=== PATIENT | male | born 1940 | race Caucasian/White ===

== ENCOUNTER 2016-07-22 07:29 | Inpatient (IN) ==
--- NOTE | 2016-07-22 07:48 | Discharge Summary ---
<Sue Banerjee Rico - Last Filed: 07/22/16 10:10> Date of Encounter: 07/22/16 - Discharge Diagnosis (1) Rotator cuff tear arthropathy of right shoulder Priority: Primary Status: Acute (2) History of DVT (deep vein thrombosis) Priority: Secondary Status: Chronic (3) HTN (hypertension) Priority: Secondary Status: Chronic Qualifiers: Hypertension type: essential hypertension Qualified Code(s): I10 - Essential (primary) hypertension (4) HLD (hyperlipidemia) Priority: Secondary Status: Chronic Qualifiers: Hyperlipidemia type: unspecified Qualified Code(s): E78.5 - Hyperlipidemia , unspecified - Discharge Medications Home Medications: Hydrochlorothiazide 25 mg PO DAILY 09/19/15 [History] Pantoprazole Sodium [Protonix] 40 mg PO DAILY 09/19/15 [History] Carvedilol 12.5 mg PO BID 07/04/16 [History] EPINEPHrine [Epipen] 0.3 mg IM ONCE PRN 07/04/16 [History] Rivaroxaban [Xarelto] 20 mg PO DAILY 07/04/16 [History] Lactobacillus [Culturelle] 1 each PO DAILY 07/22/16 [History] OxyCODONE Immed Rel [Roxicodone 5 MG] 5 - 10 mg PO Q6HR PRN #40 tablet 07/22/16 [Rx] Allergies/Adverse Reactions: Allergies indomethacin [From Indocin] Allergy (Verified 07/22/16 08:39) Rash *patient states unsure promethazine [From Phenergan] Allergy (Verified 07/22/16 08:39) Shakiness trazodone Allergy (Verified 07/22/16 08:39) Rash *patient states unsure venom-honey bee [bee venom (honey bee)] Allergy (Verified 07/04/16 08:14) Anaphylaxis Hydromorphone [From Dilaudid] Adverse Reaction (Verified 07/22/16 08:39) Headache Primary care physician: Lee Michelle MD - Patient Status Disposition: Home, Self-Care Condition: Good - Discharge Instructions Follow Up With: Lee Michelle MD [Primary Care Provider] - - Hospital Course Hospital course: Mr. Cruz is a 76 year old male - Time Spent with Patient Total time spent providing and/or coordinating discharge services: <Guzman Hillman - Last Filed: 07/22/16 12:57> Date of Encounter: 07/22/16 Time of Encounter: 12:56 - Discharge Diagnosis (1) Rotator cuff tear arthropathy of right shoulder Priority: Primary Status: Acute (2) HLD (hyperlipidemia) Priority: Secondary Status: Chronic Qualifiers: Hyperlipidemia type: unspecified Qualified Code(s): E78.5 - Hyperlipidemia , unspecified (3) HTN (hypertension) Priority: Secondary Status: Chronic Qualifiers: Hypertension type: essential hypertension Qualified Code(s): I10 - Essential (primary) hypertension (4) History of DVT (deep vein thrombosis) Priority: Secondary Status: Chronic Primary care physician: Lee Michelle MD - Patient Status Functional capacity at discharge: uses cane/walker Overall status at discharge: patient is progressing back to baseline - Hospital Course Hospital course: Mr. Cruz is a 76 year old male The patient had an uneventful postoperative course. They received antibiotics and physical therapy and were discharged in stable condition. There will follow -up in the office in 2 weeks. - Time Spent with Patient Total time spent providing and/or coordinating discharge services:
--- NOTE | 2016-07-22 08:01 | History & Physical Report ---
Date of Encounter: 07/22/16 Time of Encounter: 08:01 24 Hour HP Update - Instructions Instructions: If the History and Physical is less than 30 days old and was completed prior to A.M. admission and or procedure and has NOT been updated on calendar day of procedure please complete this update prior to performing procedure. - Update Patient reports changes in Medical Condition: No Changes in assessment/condition: No Changes in Medication: No Preop tests/diagnostics Reviewed: Yes Surgery Remains Indicated: Yes Consent for Planned Operative Procedure(s) Verified: Yes - Pre-Operative Checklist Preoperative Checklist Indicated: No Prophylactic Antibiotic Ordered: Yes Is VTE Prophylaxis Indicated?: Yes
[2016-07-22] MEDS ORDERED: CeFAZolin Pre 2,000 MG/100 ML 2,000 MG/100 ML BAG IVPB ONE (08:25)
[2016-07-22] MEDS ORDERED: Lidocaine 1% 20 ML MDV ID ONE (08:25)
[2016-07-22] MEDS: Ringers Solution, Lactated 1,000 ML IVC SCH ×2 (08:36→11:45)
[2016-07-22] MEDS ORDERED: Dexamethasone 4 MG/ML VIAL ONE (08:58)
[2016-07-22] MEDS ORDERED: Ondansetron 4 MG/2 ML VIAL ONE (08:58)
[2016-07-22] MEDS ORDERED: Lidocaine -MPF 4% 5 ML AMPUL ONE (08:58)
[2016-07-22] MEDS ORDERED: *HR* Succinylcholine 200 MG/10 ML VIAL IVP ONE (08:58)
[2016-07-22] MEDS ORDERED: Lidocaine -MPF 2% 2 ML VIAL ONE (08:58)
[2016-07-22] MEDS ORDERED: *HR* FentaNYL (PF) 100 MCG/2 ML VIAL ONE (08:59)
[2016-07-22] MEDS ORDERED: *HR* Midazolam HCl 2 MG/2 ML VIAL ONE (08:59)
[2016-07-22] MEDS ORDERED: *HR* Propofol 200 MG/20 ML VIAL IVP ONE (08:59)
[2016-07-22] MEDS ORDERED: *HR* Morphine 2 MG/ML SYRINGE IVP PRN (09:12)
[2016-07-22] MEDS ORDERED: Ondansetron 4 MG/2 ML VIAL IVP ONE (09:12)
--- NOTE | 2016-07-22 09:27 | Anesthesia Evaluation PreOp ---
Date of Encounter: 07/22/16 Time of Encounter: 09:20 - Past History Planned Operation: Rt Total Shoulder Replacement Cardiac History: HTN, Hyperlipidemia, Other (Hx DVT) Pulmonary History: Denies Any Significant HX ENGLISH DRAWER History: Denies Any Significant HX Other Medical History: Diabetes Type II Anesthesia History: No Prior Anesthetic Complications Alcohol Use: none Drug use: none Medications and Allergies Hydrochlorothiazide 25 mg PO DAILY 09/19/15 [History] Pantoprazole Sodium [Protonix] 40 mg PO DAILY 09/19/15 [History] Carvedilol 12.5 mg PO BID 07/04/16 [History] EPINEPHrine [Epipen] 0.3 mg IM ONCE PRN 07/04/16 [History] Rivaroxaban [Xarelto] 20 mg PO DAILY 07/04/16 [History] Lactobacillus [Culturelle] 1 each PO DAILY 07/22/16 [History] OxyCODONE Immed Rel [Roxicodone 5 MG] 5 - 10 mg PO Q6HR PRN #40 tablet 07/22/16 [Rx] Allergies indomethacin [From Indocin] Allergy (Verified 07/22/16 08:39) Rash *patient states unsure promethazine [From Phenergan] Allergy (Verified 07/22/16 08:39) Shakiness trazodone Allergy (Verified 07/22/16 08:39) Rash *patient states unsure venom-honey bee [bee venom (honey bee)] Allergy (Verified 07/04/16 08:14) Anaphylaxis Hydromorphone [From Dilaudid] Adverse Reaction (Verified 07/22/16 08:39) Headache - Meds/Allergy Pre-op Review Medications Reviewed: Yes Allergies Reviewed: Yes Beta Blockers on Current Med List: Yes (Took Coreg yesterday 1729) Anesthesia Results - Labs Laboratory Tests 07/08/16 07/08/16 07/08/16 14:30 14:30 14:30 Hgb 13.9 Hct 41.4 Plt Count 199 PT 13.4 H INR 1.2 APTT 30.9 Sodium 139 Potassium 4.1 BUN 20 Creatinine 1.10 - Imaging EKG: report reviewed (SR) Additional studies: LVEF 55%, stress test negative Anesthesia Exam O2 Sat Height 1.78 m Height 1.78 m Height 1.78 m Weight 90.718 kg Weight 90.718 kg Weight 90.718 kg O2 Sat by Pulse Oximetry 99 O2 Sat by Pulse Oximetry 99 Vital Signs Temp Pulse Resp BP Pulse Ox 98.1 F 87 18 190/88 99 07/22/16 08:02 07/22/16 08:02 07/22/16 08:02 07/22/16 08:02 07/22/16 08:02 Height: 6'0 Weight: 199 lbs NPO (# of Hours): MN - HEENT Pupil (Motor): Pupils equal, EOMI Mallampati: II Teeth: Normal Oral Opening: Greater than 3 - ENGLISH DRAWER LOC: Oriented ENGLISH DRAWER Motor: Normal RUE, Normal LUE, Normal RLE, Normal LLE, Normal Face ENGLISH DRAWER Sensory: Normal: RUE, LUE, RLE, LLE, Face - Cardiac Rhythm: Regular Murmur: None JVD: No Carotid Bruit: No - Pulmonary Breath Sounds: bilateral Clear Respiratory Effort: Symmetrical Anesthesia Assess/Plan ASA Score: 3 (HTN DVT) Modified Cait Scale for Level of Consciousness: Cooperative, oriented, and tranquil Anesthetic Plan: General, Regional Monitoring Plan: Standard Monitors Recovery Plan: PACU (Discussed GA and RA, agrees to proceed)
[2016-07-22] MEDS ORDERED: ROPIVACAINE HCL/PF 0.5% 30 ML VIAL ONE (09:55)
[2016-07-22] MEDS ORDERED: Tetracaine/PF 20 MG/2 ML AMPUL SPINA ONE (09:56)
--- NOTE | 2016-07-22 10:26 | Anesthesia Procedures ---
Date of Encounter: 07/22/16 Time of Encounter: 10:00 Procedures: Anesthesia - Nerve Block Procedure Date: 07/22/16 Time: 10:10 Pre-op Diagnosis: Rt Shoulder Arthropathy Surgical Procedure: Rt Shoulder Reverse Ball Total Correct side: Right Blood Thinner: No Monitor Applied: EKG, Pulse Oximetry Supplemental Oxygen via Nasal Cannula (L/min): 2 Sedation: Versed (mg): 2 Sedation: Fentanyl (mcg): 100 Indication: Post Op Analgesia Pre-op Neuro Deficits: No Block Type: Supraclavicular Catheter placed: No Depth at skin (cm): 2 Sterile Technique: Yes Ultrasound used: Yes Anatomy identified: Yes Visual spread of Local: Yes Neuro Stimulation: No Blood on Needle Aspiration: No Smooth Injection of Local: Yes Pain with Injection of Local: No Prep: Chlorhexadine, Alcohol Needle: 22 x 50 mm Stimuplex Local: Tetracaine, Ropivacaine (0.5%) Volume (cc): 30 Number of Attempts: 1 Complications: None/effective block Vitals: Vital Signs/O2 Sat/Glucose, Most Current Temp Pulse Resp BP Pulse Ox 07/22/16 10:09 67 16 157/81 99 07/22/16 09:46 74 16 179/97 100 07/22/16 08:28 98.1 F 87 18 190/88 99 07/22/16 08:02 98.1 F 87 18 190/88 99
[2016-07-22] MEDS ORDERED: *HR* Morphine 10 MG/ML VIAL ONE (10:57)
--- NOTE | 2016-07-22 11:23 | Orthopedic Operative Note ---
Date of procedure: 07/22/16 Pre-op diagnosis: Right shoulder cuff tear arthropathy Post-op diagnosis: same Implants: Procedure: Right Total Shoulder Replacment Reverse, biceps tenodesi Estimated blood loss: 100 cc Hardware:Arthrex large glenoid baseplate, 2 4.5 screws. 1 6.5 screw, 22 lateral glenosphere, 9 humeral stem, poly insert 3 constrained 12 metal Exam Under anesthesia: Restricted and motion all planes Procedural Notes: Extensive grade 4 arthritic changes posterior subluxation posterior wear on the glenoid. Irreparable rotator cuff tear Operative procedure: The patient was brought to the operating room and placed on the operating room table. After general anesthesia was administered the operative shoulder was examined. Findings were noted. The patient was placed in the modified beachchair position. All pressure points were padded appropriately. And the head was stabilized in the neutral position. The operative extremity was prepped and draped in the sterile surgical fashion. The patient received IV antibiotics prior to skin incision. A standard deltopectoral approach was made to the operative shoulder. Incision was made to the skin and subcutaneous tissue,hemo stasis was obtained with Bovie cautery. Using careful blunt dissection the cephalic vein was identified and mobilized medially. The deltopectoral interval was developed and the clavipectoral fascia was incised. The subscap was released off the lesser tuberosity it was irreparable. The humerus was dislocated patient noted to have irreparable tear supraspinatus tendon as well as extensive grade 4 arthritic changes with posterior wear, and the humeral cut was made along the anatomic neck. Anterior and posterior Bankart retractors were placed to expose the glenoid. The glenoid guide was seated and the centering hole was made. It was reamed with the appropriate large reamer. The large baseplate was seated and secured with (2) 4.5 screws and one 6.5 screw. The baseplate was irrigated and dried and the lateral Glenosphere was seated and secured with the Sabillon taper. The Sabillon taper was tested and found to be secure the humerus was redislocated and prepared with the diaphyseal reamers, followed by a broaching process up to the appropriate size X in the patient's anatomic version. The metaphyseal reamer was then utilized. Trial reduction found the shoulder to be relocatable. Trial components were removed. The appropriate 9 stem was impacted in place in the patient's anatomic version. Trial reduction found the shoulder to be relocatable and stable with the appropriate 12 metal 3 constrained Usha Trial component was removed and the real 12 metal 3 constrained Usha was seated and secured the shoulder was reduced. The shoulder had excellent motion and excellent stability and no evidence of dislocation. The deep tissue was irrigated with pulse irrigation. The deltopectoral interval was closed with a running #1 PDS suture, subcutaneous tissue was irrigated and closed with 0 PDS suture, the skin was closed with Dermabond. The patient was placed in a sterile dressing, abduction brace and extubated. The patient was then transferred to the recovery room in stable condition. Anesthesia: ROMARIO Surgeon: Guzman Hillman Electronics Lead: Sue Banerjee Condition: stable Disposition: PACU
[2016-07-22 12:03] LABS: Hematocrit 37.9 % (37.5-50.1); Hemoglobin 12.5 g/dL (12.9-16.9)
--- NOTE | 2016-07-22 12:18 | Anesthesia Evaluation Post Op ---
Date of Encounter: 07/22/16 Time of Encounter: 12:17 - Vital Signs Vital Signs: Vital Signs/O2 Sat/Glucose, Most Current Temp Pulse Resp BP Pulse Ox 07/22/16 12:00 95 18 162/95 97 07/22/16 11:50 99 18 128/98 100 07/22/16 11:40 97.1 F L 91 18 149/100 100 07/22/16 10:32 71 18 167/90 98 07/22/16 10:09 67 16 157/81 99 07/22/16 09:46 74 16 179/97 100 07/22/16 08:28 98.1 F 87 18 190/88 99 - Lungs Lungs: Clear Ascult./Percussion - Airway Airway: Non-obstructed - Cardiovascular Regular Rate - Mental Status Mental Status: Alert & Oriented, Answers Appropriately - Pain Pain Scale: 2 - Nausea Vomiting Nausea Vomiting: Not Present - Hydration Hydration: Tolerates oral liquids - Discharge PostOp Status: Transfer Patient to floor
[2016-07-22] MEDS ORDERED: *HR* EPINEPHrine 0.3 MG/0.3 ML (PEN) IM PRN (12:35)
[2016-07-22] MEDS ORDERED: *HR* OxyCODONE Immed Rel 5 MG TABLET PO PRN ×2 (12:35)
[2016-07-22] MEDS ORDERED: Temazepam 15 MG CAPSULE PO PRN (12:35)
[2016-07-22] MEDS ORDERED: Albuterol Neb 1.25 MG/3 ML VIAL IH ONE (12:35)
[2016-07-22] MEDS ORDERED: Ringers Solution, Lactated 1,000 ML IVC SCH (12:35)
[2016-07-22] MEDS ORDERED: Sennosides 8.6 MG TABLET PO PRN (12:35)
[2016-07-22] MEDS ORDERED: Acetaminophen 325 MG TABLET PO PRN (12:35)
[2016-07-22] MEDS ORDERED: Naloxone 0.4 MG/ML INJ IVP PRN (12:35)
[2016-07-22] MEDS ORDERED: Ondansetron 4 MG/2 ML VIAL IVP PRN (12:35)
[2016-07-22] MEDS ORDERED: MOM Conc 10 ML UD.LIQ PO PRN (12:35)
[2016-07-22] MEDS ORDERED: *HR* Rivaroxaban 10 MG TABLET PO SCH (14:00)
[2016-07-22 15:04] VITALS: BP 130/86
[2016-07-22] MEDS ORDERED: *HR* Enoxaparin 30 MG/0.3 ML SYRINGE SQ SCH (18:00)
[2016-07-22] MEDS ORDERED: ceFAZolin 2,000 MG in D5% in Water 100 ML IVPB SCH (18:30)
[2016-07-23] MEDS ORDERED: Lactobacillus 1 EACH CAP.SPRINK PO SCH (09:00)
[2016-07-23] MEDS ORDERED: hydroCHLOROthiazide 25 MG TABLET PO SCH (09:00)
== END 2016-07-22 16:47 | disposition home health service (06) | DRG 483 ==
LOC: SAMDAY 07:29 → 3NENU 12:34
PROVIDERS: ADMIT Orthopaedic Surgery; ATTEND Orthopaedic Surgery

== ENCOUNTER 2020-03-29 00:46 | Inpatient (IN) ==
[2020-03-29 04:35] LABS: Adenovirus Not Detected (Not Detect); Bordetella Pertussis Not Detected (Not Detect); Coronavirus 229E Not Detected (Not Detect); Coronavirus HKU1 Not Detected (Not Detect); Coronavirus NL63 Not Detected (Not Detect); Coronavirus OC43 Not Detected (Not Detect); Human Metapneumovirus Not Detected (Not Detect); Human Rhinovirus/Enterovirus Not Detected (Not Detect); Influenza A Subtype 2009 H1 Not Detected (Not Detect); Influenza B Not Detected (Not Detect); Parainfluenza Virus 1 Not Detected (Not Detect); Parainfluenza Virus 2 Not Detected (Not Detect); Parainfluenza Virus 3 Not Detected (Not Detect); Parainfluenza Virus 4 Not Detected (Not Detect); Respiratory Syncytial Virus Not Detected (Not Detect); SARS-CoV-2 Not Detected (Not Detect)
[2020-03-29 04:36] LABS: Chlamydophila pneumoniae Not Detected (Not Detect); Mycoplasma pneumoniae Not Detected (Not Detect)
[2020-03-29] MEDS ORDERED: Naloxone 0.4 MG/ML INJ IVP PRN (05:35)
[2020-03-29] MEDS ORDERED: Ondansetron 4 MG/2 ML VIAL IVP PRN (05:35)
[2020-03-29 06:56] LABS: Basophils # 0.1 K/mcL (0.0-0.2); Basophils % 0.7 %; Eosinophils # 0.2 K/mcL (0.0-0.6); Eosinophils % 3.4 %; Hematocrit 30.2 % (37.5-50.1); Immature Granulocytes % 0.1 % (0-4); Lymphocytes # 1.5 K/mcL (0.6-4.6); Lymphocytes % 22.1 %; Mean Corpuscular HGB Conc 29.8 g/dL (31.6-35.5); Mean Corpuscular Hemoglobin 24.7 pg (28.0-33.3); Mean Platelet Volume 9.9 fL (9.4-12.4); Monocytes # 0.7 K/mcL (0.0-1.3); Monocytes % 10.5 %; Neutrophils # 4.3 K/mcL (1.6-8.9); Platelet Count 236 K/mcL (140-400); Red Blood Count 3.64 M/mcL (4.19-5.50); Red Cell Distribution Width 15.7 % (11.5-14.5); Segmented Neutrophils % 63.2 %; White Blood Count 6.8 K/mcL (4.3-11.1)
[2020-03-29 07:08] LABS: INR 2.2; Prothrombin Time 24.8 Seconds (9.4-12.1)
[2020-03-29 07:16] LABS: Alanine Aminotransferase 8 Units/L (7-52); Albumin 3.8 g/dL (3.5-5.7); Albumin/Globulin Ratio 1.5 (1.1-2.2); Alkaline Phosphatase 68 Units/L (34-104); Aspartate Amino Transferase 12 Units/L (13-39); BUN/Creatinine Ratio 21 (6-26); Bilirubin,Total 0.4 mg/dL (0.3-1.0); Blood Urea Nitrogen 24 mg/dL (8-23); Calcium 8.7 mg/dL (8.6-10.3); Carbon Dioxide 29 mEq/L (23-29); Chloride 104 mEq/L (98-107); Globulin 2.6 g/dL (2.4-3.5); Glucose 109 mg/dL (70-105); Osmolality,Calculated 293 (280-300); Potassium 3.5 mEq/L (3.5-5.1); Sodium 139 mEq/L (136-145); Total Protein 6.4 g/dL (6.4-8.9); eGFR For African Americans > 60 (> 60); eGFR For Non-African Americans > 60 (> 60)
[2020-03-29] MEDS ORDERED: Perflutren Lipid Microsphere 1.3 ML in 0.9 % Sodium Chloride 8.7 ML IVP PRN ×2 (07:21→09:08)
[2020-03-29 07:52] LABS: Hematocrit 29.9 % (37.5-50.1); Hemoglobin 8.9 g/dL (12.9-16.9); Mean Corpuscular HGB Conc 29.8 g/dL (31.6-35.5); Mean Corpuscular Hemoglobin 24.6 pg (28.0-33.3); Mean Corpuscular Volume 82.6 fL (83.0-100.0); Mean Platelet Volume 10.3 fL (9.4-12.4); Platelet Count 231 K/mcL (140-400); Red Blood Count 3.62 M/mcL (4.19-5.50); Red Cell Distribution Width 15.8 % (11.5-14.5)
[2020-03-29] MEDS: Furosemide 40 MG/4 ML VIAL IVP SCH (08:37)
[2020-03-29] MEDS ORDERED: *HR* Heparin 5,000 UNIT/ML VIAL IVP ONE (16:53)
[2020-03-29] MEDS ORDERED: *HR* Heparin 5,000 UNIT/ML VIAL IVP PRN ×2 (16:53)
[2020-03-29] MEDS ORDERED: Loratadine 10 MG TABLET PO PRN (17:04)
[2020-03-29] MEDS: Heparin 25,000UNIT/250ML 1/2NS 25,000 UNIT/250 ML IV.SOLN IVC SCH (17:53)
[2020-03-29] MEDS: carvediloL 25 MG TABLET PO SCH (17:57)
[2020-03-29] MEDS: hydroCHLOROthiazide 25 MG TABLET PO SCH (17:58)
[2020-03-30 02:05] LABS: BUN/Creatinine Ratio 26 (6-26); Blood Urea Nitrogen 29 mg/dL (8-23); Calcium 8.5 mg/dL (8.6-10.3); Carbon Dioxide 28 mEq/L (23-29); Chloride 103 mEq/L (98-107); Glucose 101 mg/dL (70-105); Osmolality,Calculated 292 (280-300); Potassium 3.5 mEq/L (3.5-5.1); Sodium 138 mEq/L (136-145); eGFR For African Americans > 60 (> 60); eGFR For Non-African Americans > 60 (> 60)
[2020-03-30] MEDS: hydroCHLOROthiazide 25 MG TABLET PO SCH (07:18)
[2020-03-30] MEDS: Furosemide 40 MG/4 ML VIAL IVP SCH (07:18)
[2020-03-30] MEDS: Heparin 25,000UNIT/250ML 1/2NS 25,000 UNIT/250 ML IV.SOLN IVC SCH (07:18)
[2020-03-30] MEDS: carvediloL 25 MG TABLET PO SCH ×2 (07:18→16:31)
[2020-03-30 17:47] LABS: INR 1.3; Prothrombin Time 14.6 Seconds (9.4-12.1)
[2020-03-30] MEDS: Aspirin 81 MG TAB.CHEW PO SCH (18:12)
[2020-03-31 00:47] LABS: Hematocrit 29.4 % (37.5-50.1); Hemoglobin 8.9 g/dL (12.9-16.9); Mean Corpuscular HGB Conc 30.3 g/dL (31.6-35.5); Mean Corpuscular Hemoglobin 23.9 pg (28.0-33.3); Mean Corpuscular Volume 78.8 fL (83.0-100.0); Mean Platelet Volume 10.1 fL (9.4-12.4); Platelet Count 257 K/mcL (140-400); Red Blood Count 3.73 M/mcL (4.19-5.50); Red Cell Distribution Width 15.8 % (11.5-14.5); White Blood Count 7.7 K/mcL (4.3-11.1)
[2020-03-31 00:59] LABS: BUN/Creatinine Ratio 28 (6-26); Blood Urea Nitrogen 37 mg/dL (8-23); Calcium 8.7 mg/dL (8.6-10.3); Carbon Dioxide 29 mEq/L (23-29); Chloride 99 mEq/L (98-107); Glucose 135 mg/dL (70-105); Osmolality,Calculated 293 (280-300); Potassium 3.1 mEq/L (3.5-5.1); Sodium 136 mEq/L (136-145); eGFR For African Americans > 60 (> 60); eGFR For Non-African Americans 53 (> 60)
[2020-03-31 01:07] LABS: INR 1.2; Prothrombin Time 14.1 Seconds (9.4-12.1)
[2020-03-31 01:09] LABS: Activated Partial Thrombo Time 53.5 Seconds (26.0-36.0)
[2020-03-31] MEDS: Heparin 25,000UNIT/250ML 1/2NS 25,000 UNIT/250 ML IV.SOLN IVC SCH (05:37)
[2020-03-31] MEDS: carvediloL 25 MG TABLET PO SCH ×2 (07:06→18:11)
[2020-03-31] MEDS: Aspirin 81 MG TAB.CHEW PO SCH (07:06)
[2020-03-31] MEDS: hydroCHLOROthiazide 25 MG TABLET PO SCH (07:06)
[2020-03-31 08:16] LABS: Activated Partial Thrombo Time 112.9 Seconds (26.0-36.0)
[2020-03-31 08:29] LABS: Heparin anti-factor XA UFH 0.81 IU/mL (0.30-0.70)
[2020-03-31] MEDS ORDERED: Heparin 1,000 UNITS/500 mL 500 ML ONE ×2 (15:47→16:54)
[2020-03-31] MEDS ORDERED: 0.9 % Sodium Chloride 1,000 ML ONE ×2 (15:47→15:49)
[2020-03-31] MEDS ORDERED: ISOVUE-370 200 ML INFUS..BTL ONE ×2 (15:48→16:57)
[2020-03-31] MEDS ORDERED: Nitroglycerin 1,000 MCG/10 ML VIAL IV ONE (15:48)
[2020-03-31] MEDS ORDERED: *HR* Heparin 10,000 UNIT/10 ML VIAL ONE ×2 (15:48→17:07)
[2020-03-31] MEDS ORDERED: *HR* Midazolam HCl 2 MG/2 ML VIAL ONE (16:05)
[2020-03-31] MEDS ORDERED: *HR* FentaNYL (PF) 100 MCG/2 ML VIAL ONE (16:05)
[2020-03-31] MEDS ORDERED: *HR* Ticagrelor 90 MG TABLET ONE (16:49)
[2020-03-31] MEDS: 0.9 % Sodium Chloride 1,000 ML IVC SCH (19:17)
[2020-03-31] MEDS ORDERED: Isovue-370 500 ML BOTTLE PO ONE (21:26)
[2020-04-01 01:58] LABS: BUN/Creatinine Ratio 28 (6-26); Blood Urea Nitrogen 29 mg/dL (8-23); Calcium 8.7 mg/dL (8.6-10.3); Carbon Dioxide 24 mEq/L (23-29); Chloride 104 mEq/L (98-107); Glucose 128 mg/dL (70-105); Hematocrit 30.7 % (37.5-50.1); Hemoglobin 9.3 g/dL (12.9-16.9); Osmolality,Calculated 291 (280-300); Potassium 3.6 mEq/L (3.5-5.1); Sodium 137 mEq/L (136-145); eGFR For African Americans > 60 (> 60); eGFR For Non-African Americans > 60 (> 60)
[2020-04-01 01:59] LABS: % Iron Saturation 3 % (20-55); Iron 16 mcg/dL (65-175); Transferrin 327 mg/dL (203-362)
[2020-04-01 02:17] LABS: Ferritin 13 ng/mL (20-250)
[2020-04-01] MEDS: 0.9 % Sodium Chloride 1,000 ML IVC SCH (05:02)
[2020-04-01] MEDS: hydroCHLOROthiazide 25 MG TABLET PO SCH (09:03)
[2020-04-01] MEDS: Aspirin 81 MG TAB.CHEW PO SCH (09:04)
[2020-04-01] MEDS: carvediloL 25 MG TABLET PO SCH ×2 (09:04→17:44)
[2020-04-01] MEDS ORDERED: FLU Vac QV 20-21 (6Month+)/PF 0.5 ML SYRINGE IM ONE (10:43)
[2020-04-01] MEDS ORDERED: Nitroglycerin 0.4 MG TAB.SUBL SL PRN (13:13)
[2020-04-01 15:29] VITALS: BP 137/76
[2020-04-02 11:49] LABS: Total Volume 24 Hour,Urine 1.48 Liters (0.80-1.80)
[2020-04-04 18:47] LABS: Lambda Qnt Free Light Chains 14.78 mg/L (5.71-26.30)
[2020-04-05 06:54] LABS: Immunoglobulin A 176 mg/dL (68-408); Immunoglobulin G 935 mg/dL (768-1632); Immunoglobulin M 97 mg/dL (35-263); Kappa Qnt Free Light Chains 21.55 mg/L (3.30-19.40)
== END 2020-04-01 18:30 | disposition home or self-care (01) | DRG 247 ==
LOC: 2ANU → SUATTDRO 03:23 → 2ANU 03-31 18:44
PROVIDERS: ADMIT Internal Medicine; ATTEND Internal Medicine

== ENCOUNTER 2020-05-15 16:58 | Inpatient (IN) ==
[2020-05-15] MEDS ORDERED: Naloxone 0.4 MG/ML INJ IVP PRN (20:07)
[2020-05-15] MEDS ORDERED: Nitroglycerin 0.4 MG TAB.SUBL SL PRN (20:50)
[2020-05-15] MEDS ORDERED: Dextrose Gel 15 GM/37.5 ML TUBE PO PRN ×2 (20:53)
[2020-05-15] MEDS ORDERED: *HR* Dextrose 50 % in Water (Vial) 50 ML VIAL IVP PRN (20:53)
[2020-05-15] MEDS ORDERED: D5% in Water 1,000 ML IVC PRN (20:53)
[2020-05-15] MEDS: carvediloL 6.25 MG TABLET PO SCH (23:08)
[2020-05-16] MEDS: Insulin LISPRO 300 UNITS/3 ML VIAL SQ SCH ×2 (00:26→05:26)
[2020-05-16] MEDS: Acetaminophen 325 MG TABLET PO PRN ×2 (01:04→08:25)
[2020-05-16] MEDS: carvediloL 6.25 MG TABLET PO SCH ×2 (08:02→17:37)
[2020-05-16 08:52] LABS: Basophils % 0.5 %; Eosinophils # 0.2 K/mcL (0.0-0.6); Eosinophils % 3.1 %; Hematocrit 33.5 % (37.5-50.1); Hemoglobin 9.7 g/dL (12.9-16.9); Immature Granulocytes % 0.3 % (0-4); Lymphocytes # 1.2 K/mcL (0.6-4.6); Mean Corpuscular Hemoglobin 23.7 pg (28.0-33.3); Mean Corpuscular Volume 81.9 fL (83.0-100.0); Mean Platelet Volume 10.9 fL (9.4-12.4); Monocytes # 0.8 K/mcL (0.0-1.3); Monocytes % 12.2 %; Neutrophils # 4.2 K/mcL (1.6-8.9); Platelet Count 198 K/mcL (140-400); Red Blood Count 4.09 M/mcL (4.19-5.50); Red Cell Distribution Width 16.9 % (11.5-14.5); Segmented Neutrophils % 65.9 %; White Blood Count 6.4 K/mcL (4.3-11.1)
[2020-05-16 08:57] LABS: INR 1.3; Prothrombin Time 14.8 Seconds (9.4-12.1)
[2020-05-16] MEDS ORDERED: *HR* Rivaroxaban 10 MG TABLET PO SCH (09:00)
[2020-05-16 09:14] LABS: Alanine Aminotransferase 15 Units/L (7-52); Albumin 4.1 g/dL (3.5-5.7); Albumin/Globulin Ratio 1.8 (1.1-2.2); Alkaline Phosphatase 91 Units/L (34-104); Aspartate Amino Transferase 16 Units/L (13-39); BUN/Creatinine Ratio 25 (6-26); Bilirubin,Total 0.5 mg/dL (0.3-1.0); Blood Urea Nitrogen 26 mg/dL (8-23); Calcium 9.1 mg/dL (8.6-10.3); Carbon Dioxide 25 mEq/L (23-29); Chloride 106 mEq/L (98-107); Globulin 2.3 g/dL (2.4-3.5); Glucose 105 mg/dL (70-105); Osmolality,Calculated 291 (280-300); Phosphorous 3.4 mg/dL (2.7-4.5); Potassium 3.8 mEq/L (3.5-5.1); Sodium 138 mEq/L (136-145); Total Protein 6.4 g/dL (6.4-8.9); Troponin I < 0.03 ng/mL (< 0.04); eGFR For African Americans > 60 (> 60); eGFR For Non-African Americans > 60 (> 60)
[2020-05-16] MEDS ORDERED: Heparin 25,000UNIT/250ML 1/2NS 25,000 UNIT/250 ML IV.SOLN IVC SCH ×2 (13:15→21:00)
[2020-05-16 14:28] LABS: Hematocrit 33.3 % (37.5-50.1); Hemoglobin 9.9 g/dL (12.9-16.9); Mean Corpuscular HGB Conc 29.7 g/dL (31.6-35.5); Mean Corpuscular Hemoglobin 24.3 pg (28.0-33.3); Mean Corpuscular Volume 81.8 fL (83.0-100.0); Mean Platelet Volume 10.8 fL (9.4-12.4); Platelet Count 190 K/mcL (140-400); Red Blood Count 4.07 M/mcL (4.19-5.50); White Blood Count 5.9 K/mcL (4.3-11.1)
[2020-05-16 14:41] LABS: INR 2.1; Prothrombin Time 23.8 Seconds (9.4-12.1)
[2020-05-16 14:44] LABS: Heparin anti-factor XA UFH 1.45 IU/mL (0.30-0.70)
[2020-05-16 15:20] LABS: Activated Partial Thrombo Time 36.1 Seconds (26.0-36.0)
[2020-05-16] MEDS ORDERED: *HR* Heparin 5,000 UNIT/ML VIAL IVP PRN ×2 (21:00)
[2020-05-17 04:13] LABS: Hematocrit 30.2 % (37.5-50.1); Hemoglobin 8.9 g/dL (12.9-16.9); Mean Corpuscular HGB Conc 29.5 g/dL (31.6-35.5); Mean Corpuscular Hemoglobin 24.5 pg (28.0-33.3); Mean Corpuscular Volume 83.2 fL (83.0-100.0); Mean Platelet Volume 10.3 fL (9.4-12.4); Platelet Count 154 K/mcL (140-400); Red Blood Count 3.63 M/mcL (4.19-5.50); Red Cell Distribution Width 16.8 % (11.5-14.5)
[2020-05-17 04:31] LABS: BUN/Creatinine Ratio 29 (6-26); Blood Urea Nitrogen 30 mg/dL (8-23); Calcium 8.2 mg/dL (8.6-10.3); Carbon Dioxide 24 mEq/L (23-29); Chloride 106 mEq/L (98-107); Glucose 117 mg/dL (70-105); Osmolality,Calculated 291 (280-300); Potassium 3.8 mEq/L (3.5-5.1); Sodium 137 mEq/L (136-145); eGFR For African Americans > 60 (> 60); eGFR For Non-African Americans > 60 (> 60)
[2020-05-17] MEDS: carvediloL 6.25 MG TABLET PO SCH ×2 (08:11→16:25)
[2020-05-17] MEDS ORDERED: Heparin 1,000 UNITS/500 mL 500 ML ONE (10:49)
[2020-05-17] MEDS ORDERED: *HR* Heparin 10,000 UNIT/10 ML VIAL ONE (10:49)
[2020-05-17] MEDS ORDERED: 0.9 % Sodium Chloride 1,000 ML ONE (10:49)
[2020-05-17] MEDS ORDERED: ISOVUE-370 200 ML INFUS..BTL ONE ×2 (10:49→12:24)
[2020-05-17] MEDS ORDERED: Nitroglycerin 1,000 MCG/10 ML VIAL IV ONE (10:50)
[2020-05-17] MEDS ORDERED: *HR* FentaNYL (PF) 100 MCG/2 ML VIAL ONE (11:03)
[2020-05-17] MEDS ORDERED: *HR* Midazolam HCl 2 MG/2 ML VIAL ONE (11:03)
[2020-05-17] MEDS ORDERED: *HR* Rivaroxaban 10 MG TABLET PO SCH (17:00)
[2020-05-18] MEDS: Acetaminophen 325 MG TABLET PO PRN (05:49)
[2020-05-18 07:32] LABS: BUN/Creatinine Ratio 27 (6-26); Blood Urea Nitrogen 30 mg/dL (8-23); Calcium 8.6 mg/dL (8.6-10.3); Carbon Dioxide 23 mEq/L (23-29); Chloride 105 mEq/L (98-107); Glucose 95 mg/dL (70-105); Osmolality,Calculated 288 (280-300); Sodium 136 mEq/L (136-145); eGFR For African Americans > 60 (> 60); eGFR For Non-African Americans > 60 (> 60)
[2020-05-18 07:36] LABS: Basophils % 0.6 %; Eosinophils # 0.2 K/mcL (0.0-0.6); Eosinophils % 2.4 %; Hematocrit 32.7 % (37.5-50.1); Hemoglobin 9.6 g/dL (12.9-16.9); Immature Granulocytes % 0.2 % (0-4); Lymphocytes # 1.1 K/mcL (0.6-4.6); Lymphocytes % 16.8 %; Mean Corpuscular HGB Conc 29.4 g/dL (31.6-35.5); Mean Corpuscular Hemoglobin 24.5 pg (28.0-33.3); Mean Corpuscular Volume 83.4 fL (83.0-100.0); Mean Platelet Volume 11.1 fL (9.4-12.4); Monocytes # 0.9 K/mcL (0.0-1.3); Monocytes % 13.6 %; Neutrophils # 4.2 K/mcL (1.6-8.9); Platelet Count 180 K/mcL (140-400); Red Blood Count 3.92 M/mcL (4.19-5.50); Segmented Neutrophils % 66.4 %; White Blood Count 6.3 K/mcL (4.3-11.1)
[2020-05-18] MEDS: carvediloL 6.25 MG TABLET PO SCH (08:46)
[2020-05-18 10:37] VITALS: BP 123/75
[2020-05-18] MEDS ORDERED: Aspirin Enteric Coated 81 MG Tablet PO SCH (11:15)
== END 2020-05-18 14:25 | disposition home or self-care (01) | DRG 247 ==
LOC: 3BNU
PROVIDERS: ADMIT Internal Medicine; ATTEND Internal Medicine

== ENCOUNTER 2020-08-27 12:54 | Inpatient (IN) ==
[2020-08-27 13:55] LABS: Basophils # 0.1 K/mcL (0.0-0.2); Basophils % 0.7 %; Eosinophils # 0.2 K/mcL (0.0-0.6); Hematocrit 35.5 % (37.5-50.1); Hemoglobin 10.6 g/dL (12.9-16.9); Immature Granulocytes % 0.4 % (0-4); Lymphocytes # 1.2 K/mcL (0.6-4.6); Lymphocytes % 13.9 %; Mean Corpuscular HGB Conc 29.9 g/dL (31.6-35.5); Mean Corpuscular Hemoglobin 22.6 pg (28.0-33.3); Mean Corpuscular Volume 75.9 fL (83.0-100.0); Mean Platelet Volume 9.8 fL (9.4-12.4); Monocytes # 1.3 K/mcL (0.0-1.3); Neutrophils # 5.6 K/mcL (1.6-8.9); Platelet Count 221 K/mcL (140-400); Red Blood Count 4.68 M/mcL (4.19-5.50); Red Cell Distribution Width 20.5 % (11.5-14.5); White Blood Count 8.4 K/mcL (4.3-11.1)
[2020-08-27 14:02] LABS: INR 1.6; Prothrombin Time 18.4 Seconds (9.4-12.1)
[2020-08-27 14:04] LABS: Activated Partial Thrombo Time 30.4 Seconds (26.0-36.0)
[2020-08-27 14:09] LABS: BUN/Creatinine Ratio 20 (6-26); Blood Urea Nitrogen 24 mg/dL (8-23); Calcium 9.2 mg/dL (8.6-10.3); Carbon Dioxide 26 mEq/L (23-29); Chloride 103 mEq/L (98-107); Glucose 104 mg/dL (70-105); Osmolality,Calculated 290 (280-300); Potassium 3.2 mEq/L (3.5-5.1); Sodium 138 mEq/L (136-145); Troponin I < 0.03 ng/mL (< 0.04); eGFR For African Americans > 60 (> 60); eGFR For Non-African Americans 60 (> 60)
[2020-08-27] MEDS ORDERED: Nitroglycerin 0.4 MG TAB.SUBL SL PRN (15:36)
[2020-08-27] MEDS ORDERED: D5% in Water 1,000 ML IVC PRN (15:43)
[2020-08-27] MEDS ORDERED: Dextrose Gel 15 GM/37.5 ML TUBE PO PRN ×2 (15:43)
[2020-08-27] MEDS ORDERED: *HR* Dextrose 50 % in Water (Vial) 50 ML VIAL IVP PRN (15:43)
[2020-08-27] MEDS ORDERED: Potassium Chloride Elixir 20 MEQ/15 ML UDC PO ONE (15:47)
[2020-08-27] MEDS ORDERED: Acetaminophen 325 MG TABLET PO PRN (15:49)
[2020-08-27] MEDS ORDERED: Ondansetron 4 MG/2 ML VIAL IVP PRN (15:49)
[2020-08-27] MEDS ORDERED: Naloxone 0.4 MG/ML INJ IVP PRN (15:49)
[2020-08-27 16:08] LABS: Magnesium 1.8 mg/dL (1.6-2.6)
[2020-08-27 16:22] LABS: Thyroid Stimulating Hormone 1.639 mcIU/mL (0.340-5.600)
[2020-08-27] MEDS: Insulin LISPRO 300 UNITS/3 ML VIAL SUBQ SCH (16:22)
[2020-08-27] MEDS: 0.9 % Sodium Chloride 1,000 ML IVC SCH (16:38)
[2020-08-27] MEDS: Famotidine 20 MG/2 ML VIAL IVP SCH (19:48)
[2020-08-27] MEDS ORDERED: Insulin LISPRO 300 UNITS/3 ML VIAL SUBQ SCH (21:00)
[2020-08-28 01:28] LABS: Hematocrit 31.1 % (37.5-50.1); Hemoglobin 9.2 g/dL (12.9-16.9); Mean Corpuscular HGB Conc 29.6 g/dL (31.6-35.5); Mean Corpuscular Hemoglobin 22.8 pg (28.0-33.3); Mean Platelet Volume 10.4 fL (9.4-12.4); Platelet Count 199 K/mcL (140-400); Red Blood Count 4.04 M/mcL (4.19-5.50); Red Cell Distribution Width 19.2 % (11.5-14.5); White Blood Count 6.5 K/mcL (4.3-11.1)
[2020-08-28 01:37] LABS: INR 1.4; Prothrombin Time 16.2 Seconds (9.4-12.1)
[2020-08-28 01:39] LABS: Activated Partial Thrombo Time 27.4 Seconds (26.0-36.0)
[2020-08-28 01:46] LABS: BUN/Creatinine Ratio 20 (6-26); Blood Urea Nitrogen 19 mg/dL (8-23); Calcium 8.4 mg/dL (8.6-10.3); Carbon Dioxide 22 mEq/L (23-29); Chloride 106 mEq/L (98-107); Chol/HDL Ratio 2.3 (0-4.9); Cholesterol 62 mg/dL (< 200); Glucose 100 mg/dL (70-105); HDL Cholesterol 27 mg/dL (40-59); LDL Cholesterol,Calculated 16 mg/dL (< 100); Osmolality,Calculated 288 (280-300); Potassium 3.1 mEq/L (3.5-5.1); Sodium 138 mEq/L (136-145); Triglycerides 97 mg/dL (< 150); eGFR For African Americans > 60 (> 60); eGFR For Non-African Americans > 60 (> 60)
[2020-08-28 01:48] LABS: % Iron Saturation 4 % (20-55); Iron 15 mcg/dL (65-175); Transferrin 243 mg/dL (203-362)
[2020-08-28 02:06] LABS: Ferritin 10 ng/mL (20-250)
[2020-08-28 02:18] LABS: Folate > 22.3 ng/mL (3.0-16.0); Vitamin B12 313 pg/mL (250-1100)
[2020-08-28] MEDS: 0.9 % Sodium Chloride 1,000 ML IVC SCH (03:40)
[2020-08-28] MEDS: Famotidine 20 MG/2 ML VIAL IVP SCH ×2 (05:59→17:40)
[2020-08-28] MEDS ORDERED: Regadenoson 0.4 MG/5 ML SYRINGE IVP ONE (06:23)
[2020-08-28] MEDS ORDERED: *HR* Rivaroxaban 10 MG TABLET PO SCH (09:00)
[2020-08-28] MEDS ORDERED: Isosorbide MONOnitrate (24 HR) 30 MG TAB.ER.24H PO SCH (09:00)
[2020-08-28] MEDS ORDERED: hydroCHLOROthiazide 25 MG TABLET PO SCH (09:00)
[2020-08-28] MEDS ORDERED: Aspirin Enteric Coated 81 MG Tablet PO SCH (09:00)
[2020-08-28 09:03] LABS: Estimated Average Glucose 134 mg/dl; Hemoglobin A1C 6.3 %
[2020-08-28] MEDS ORDERED: Potassium Chloride Elixir 20 MEQ/15 ML UDC PO ONE (09:10)
[2020-08-28] MEDS ORDERED: Iron Sucrose Complex 400 MG in 0.9 % Sodium Chloride 250 ML IVPB ONE (09:11)
[2020-08-28] MEDS ORDERED: carvediloL 6.25 MG TABLET PO SCH (10:00)
[2020-08-28] MEDS: Insulin LISPRO 300 UNITS/3 ML VIAL SUBQ SCH ×3 (10:36→17:05)
[2020-08-28] MEDS ORDERED: lisinopriL 5 MG TABLET PO SCH (11:15)
[2020-08-28 15:21] VITALS: BP 131/75
[2020-08-28] MEDS ORDERED: Ranolazine 500 MG TAB.ER.12H PO SCH (21:00)
== END 2020-08-28 18:20 | disposition home or self-care (01) | DRG 303 ==
LOC: 3BNU 12:54 → EMEROOARM 12:54 → SUATTDRO 15:00 → 3BNU 15:23
PROVIDERS: ADMIT Internal Medicine; ATTEND Internal Medicine

== ENCOUNTER 2021-11-22 22:36 | Observation (INO) ==
[2021-11-23] MEDS ORDERED: Acetaminophen 325 MG TABLET PO PRN (00:36)
[2021-11-23] MEDS ORDERED: Melatonin 3 MG TABLET PO PRN (00:36)
[2021-11-23] MEDS ORDERED: Ondansetron 4 MG/2 ML VIAL IVP PRN (00:36)
[2021-11-23] MEDS ORDERED: Naloxone 0.4 MG/ML INJ IVP PRN (00:36)
[2021-11-23] MEDS ORDERED: *HR* Heparin 5,000 UNIT/ML VIAL IVP PRN ×2 (00:43)
[2021-11-23] MEDS ORDERED: D5% in Water 1,000 ML IVC PRN (00:45)
[2021-11-23] MEDS ORDERED: *HR* Dextrose 50 % in Water (Syg) 50 ML SYRINGE IVP PRN (00:45)
[2021-11-23] MEDS ORDERED: Heparin 25,000UNIT/250ML 1/2NS 25,000 UNIT/250 ML IV.SOLN IVC SCH (00:45)
[2021-11-23] MEDS ORDERED: Dextrose Gel 15 GM/37.5 ML TUBE PO PRN ×2 (00:45)
[2021-11-23 01:18] LABS: Heparin anti-factor XA UFH 0.8 IU/mL (0.30-0.70)
[2021-11-23] MEDS: Heparin 25,000UNIT/250ML 1/2NS 25,000 UNIT/250 ML IV.SOLN IVC SCH ×2 (02:08→03:47)
[2021-11-23] MEDS: Insulin LISPRO 300 UNITS/3 ML VIAL SUBQ SCH ×3 (04:41→16:50)
[2021-11-23 07:18] LABS: Basophils # 0.1 K/mcL (0.0-0.2); Basophils % 0.9 %; Eosinophils # 0.2 K/mcL (0.0-0.6); Eosinophils % 2.2 %; Hematocrit 41.5 % (37.5-50.1); Hemoglobin 13.3 g/dL (12.9-16.9); Immature Granulocytes % 0.2 % (0-4); Lymphocytes # 3.1 K/mcL (0.6-4.6); Lymphocytes % 31.1 %; Mean Corpuscular Hemoglobin 28.1 pg (28.0-33.3); Mean Corpuscular Volume 87.7 fL (83.0-100.0); Mean Platelet Volume 9.7 fL (9.4-12.4); Monocytes # 1.1 K/mcL (0.0-1.3); Monocytes % 11.1 %; Neutrophils # 5.5 K/mcL (1.6-8.9); Platelet Count 236 K/mcL (140-400); Red Blood Count 4.73 M/mcL (4.19-5.50); Red Cell Distribution Width 14.3 % (11.5-14.5); Segmented Neutrophils % 54.5 %; White Blood Count 10.1 K/mcL (4.3-11.1)
[2021-11-23 07:57] LABS: Alanine Aminotransferase 19 Units/L (7-52); Albumin 4.2 g/dL (3.5-5.7); Albumin/Globulin Ratio 1.6 (1.1-2.2); Alkaline Phosphatase 95 Units/L (34-104); Aspartate Amino Transferase 23 Units/L (13-39); BUN/Creatinine Ratio 17 (6-26); Bilirubin,Total 0.8 mg/dL (0.3-1.0); Blood Urea Nitrogen 20 mg/dL (8-23); Calcium 9.1 mg/dL (8.6-10.3); Carbon Dioxide 25 mEq/L (23-29); Chloride 105 mEq/L (98-107); Globulin 2.6 g/dL (2.4-3.5); Glucose 105 mg/dL (70-105); Osmolality,Calculated 289 (280-300); Phosphorous 2.9 mg/dL (2.7-4.5); Potassium 4.1 mEq/L (3.5-5.1); Sodium 138 mEq/L (136-145); Total Protein 6.8 g/dL (6.4-8.9); eGFR For African Americans > 60 (> 60); eGFR For Non-African Americans > 60 (> 60)
[2021-11-23] MEDS ORDERED: Perflutren Lipid Microsphere 1.3 ML in 0.9 % Sodium Chloride 8.7 ML IVP PRN (10:01)
[2021-11-23] MEDS: Isosorbide MONOnitrate (24 HR) 60 MG TAB.ER.24H PO SCH (10:43)
[2021-11-23] MEDS: hydroCHLOROthiazide 25 MG TABLET PO SCH (10:43)
[2021-11-23] MEDS: Aspirin Enteric Coated 81 MG Tablet PO SCH (10:43)
[2021-11-23] MEDS: *HR* Amiodarone 200 MG TABLET PO SCH ×2 (10:44→15:37)
[2021-11-23] MEDS ORDERED: Heparin 1,000 UNITS/500 mL 500 ML ONE (11:53)
[2021-11-23] MEDS ORDERED: *HR* FentaNYL (PF) 100 MCG/2 ML VIAL ONE (11:53)
[2021-11-23] MEDS ORDERED: 0.9 % Sodium Chloride 2,000 ML ONE (11:53)
[2021-11-23] MEDS ORDERED: *HR* Midazolam HCl 2 MG/2 ML VIAL ONE ×2 (11:53→12:13)
[2021-11-23] MEDS ORDERED: *HR* Heparin 10,000 UNIT/10 ML VIAL ONE (11:53)
[2021-11-23] MEDS ORDERED: ISOVUE-370 200 ML INFUS..BTL ONE (11:54)
[2021-11-23] MEDS ORDERED: Nitroglycerin 1,000 MCG/5 ML VIAL IV ONE (11:54)
[2021-11-23] MEDS ORDERED: *HR* Amiodarone 200 MG TABLET PO SCH (15:00)
[2021-11-23] MEDS ORDERED: Insulin LISPRO 300 UNITS/3 ML VIAL SUBQ SCH (21:00)
[2021-11-24 01:49] LABS: Basophils # 0.1 K/mcL (0.0-0.2); Basophils % 0.5 %; Eosinophils # 0.2 K/mcL (0.0-0.6); Eosinophils % 1.7 %; Hematocrit 37.1 % (37.5-50.1); Immature Granulocytes % 0.4 % (0-4); Lymphocytes # 3.6 K/mcL (0.6-4.6); Lymphocytes % 33.6 %; Mean Corpuscular HGB Conc 32.3 g/dL (31.6-35.5); Mean Corpuscular Hemoglobin 28.9 pg (28.0-33.3); Mean Corpuscular Volume 89.4 fL (83.0-100.0); Mean Platelet Volume 9.9 fL (9.4-12.4); Monocytes # 0.8 K/mcL (0.0-1.3); Monocytes % 7.9 %; Platelet Count 212 K/mcL (140-400); Red Blood Count 4.15 M/mcL (4.19-5.50); Red Cell Distribution Width 14.5 % (11.5-14.5); Segmented Neutrophils % 55.9 %; White Blood Count 10.7 K/mcL (4.3-11.1)
[2021-11-24 01:54] LABS: Estimated Average Glucose 131 mg/dl; Hemoglobin A1C 6.2 %
[2021-11-24 02:16] LABS: BUN/Creatinine Ratio 19 (6-26); Blood Urea Nitrogen 23 mg/dL (8-23); Calcium 8.6 mg/dL (8.6-10.3); Carbon Dioxide 26 mEq/L (23-29); Chloride 105 mEq/L (98-107); Glucose 98 mg/dL (70-105); Osmolality,Calculated 290 (280-300); Sodium 138 mEq/L (136-145); eGFR For African Americans > 60 (> 60); eGFR For Non-African Americans 59 (> 60)
[2021-11-24 02:17] LABS: Chol/HDL Ratio 2.3 (0-4.9)
[2021-11-24] MEDS: Insulin LISPRO 300 UNITS/3 ML VIAL SUBQ SCH ×2 (07:00→11:14)
[2021-11-24] MEDS: Aspirin Enteric Coated 81 MG Tablet PO SCH (09:16)
[2021-11-24] MEDS: hydroCHLOROthiazide 25 MG TABLET PO SCH (09:16)
[2021-11-24] MEDS: Isosorbide MONOnitrate (24 HR) 60 MG TAB.ER.24H PO SCH (09:16)
[2021-11-24 11:14] VITALS: BP 125/78; PULSE 76; TEMP 97.8; O2SAT 98
== END 2021-11-24 15:03 | disposition home or self-care (01) ==
LOC: 2ANU
PROVIDERS: ADMIT Student in an Organized Health Care Education/Training Program; ATTEND Student in an Organized Health Care Education/Training Program